=== PATIENT | female | born 1940 | race Caucasian/White ===

== ENCOUNTER 2017-03-25 07:55 | Outpatient (CLI) | payer MEDICARE ==
[2017-03-25 11:56] LABS: EOSINOPHILS # (AUTO) 0.1 10^3/uL (0.0-0.7); EOSINOPHILS % (AUTO) 2.8 %; HCT - HEMATOCRIT 39.6 % (37.0-47.0); HGB - HEMOGLOBIN 13.4 g/dL (12.0-16.0); LYMPHOCYTES # (AUTO) 1.7 10^3/uL (1.5-3.5); LYMPHOCYTES % (AUTO) 34.7 %; MEAN CORPUSCULAR HEMOGLOBIN 31.6 pg (27.0-31.0); MEAN CORPUSCULAR HGB CONC 33.9 g/dL (32.0-36.0); MEAN CORPUSCULAR VOLUME 93.1 fL (81.0-99.0); MONOCYTES # (AUTO) 0.4 10^3/uL (0.0-1.0); MONOCYTES % (AUTO) 8.1 %; NEUTROPHILS # (AUTO) 2.6 10^3/uL (1.5-6.6); NEUTROPHILS % (AUTO) 53.4 %; RED BLOOD COUNT 4.26 10^6/uL (4.20-5.40); RED CELL DISTRIBUTION WIDTH 13.4 % (12.0-15.0); UNCORRECTED WHITE BLOOD COUNT 4.9 x10^3/uL; WHITE BLOOD COUNT 4.9 x10^3/uL (4.8-10.8)
[2017-03-25 12:10] LABS: ALBUMIN/GLOBULIN RATIO 1.8 (1.0-2.2); BUN - BLOOD UREA NITROGEN 11 mg/dL (6-20); CARBON DIOXIDE - CO2 27 mmol/L (21-32); CHLORIDE 103 mmol/L (101-111); CHOL/HDL RATIO 2.4 (<4.4); CHOLESTEROL 225 mg/dL; CREATININE 0.6 mg/dL (0.4-1.0); GFR - MDRD 97 (>89); GLUCOSE 105 mg/dL (70-100); HDL CHOLESTEROL 95 mg/dL; POTASSIUM 4.1 mmol/L (3.5-5.0); SODIUM 137 mmol/L (135-145); TOTAL PROTEIN 6.4 g/dL (6.7-8.2); TRIGLYCERIDES 32 mg/dL
[2017-03-25 12:29] LABS: LDL CHOLESTEROL,DIRECT 108 mg/dL
== END 2017-03-25 07:56 | disposition home or self-care (01) ==
LOC: LAB.F 07:55
PROVIDERS: ATTEND Physician Assistant Medical
DX: E03.9 Hypothyroidism, unspecified (principal); I10 Essential (primary) hypertension; R35.0 Frequency of micturition; R39.11 Hesitancy of micturition; E55.9 Vitamin D deficiency, unspecified; G45.9 Transient cerebral ischemic attack, unspecified; Z79.899 Other long term (current) drug therapy
CPT/HCPCS: 36415; 80053; 80061; 82306; 84443; 85025

== ENCOUNTER 2017-03-25 16:20 | Outpatient (CLI) | payer MEDICARE ==
[2017-03-25 18:08] LABS: BILIRUBIN,URINE NEGATIVE (NEGATIVE)
[2017-03-25 18:34] LABS: WBC,URINE 0-3 /HPF (0-5)
== END 2017-03-25 16:21 | disposition home or self-care (01) ==
LOC: LAB.F 16:20
PROVIDERS: ATTEND Physician Assistant Medical
DX: R35.0 Frequency of micturition (principal); R39.11 Hesitancy of micturition
CPT/HCPCS: 81001

== ENCOUNTER 2017-07-18 20:21 | Emergency (ER) | payer MEDICARE ==
--- NOTE | 2017-07-18 20:52 | ED Physician Documentation ---
PD HPI FOCAL NEURO - Stated complaint Stated Complaint: WEAKNESS - Chief complaint Chief Complaint: Neuro - History obtained from History obtained from: Patient, Family - History of Present Illness Timing - onset: Other (Since the middle of last year she has had recurrent episodes where she has TIA-like symptoms on the right side of her body. It generally starts with perioral numbness on the right and affect sensation on the right side of the body, sometimes with weakness. There is never an associated headache. These happen frequently, several times a week but resolved without issue. She was admitted here last year and had negative cranial imaging including MRI, she has been on Plavix and a statin ever since. She did follow-up with a neurologist, Dr. Wang at the [facility]. Evidently she had an EEG which was negative but without symptoms at that time. 3 days ago had a more severe episode than normal, still with right-sided deficits but usually if she goes to sleep she wakes up without symptoms but she went to sleep that night and awoke with symptoms. She had 1 of her usual episodes tonight which is resolving without specific intervention.) Review of Systems Ten Systems: 10 systems reviewed and negative Constitutional: denies: Fever, Chills Cardiac: denies: Chest pain / pressure, Palpitations Respiratory: denies: Dyspnea, Cough GI: denies: Abdominal Pain Musculoskeletal: denies: Pain with weight bearing Neurologic: denies: Headache, Head injury, LOC PD PAST MEDICAL HISTORY - Past Medical History Past Medical History: Yes Cardiovascular: Hypertension, High cholesterol Respiratory: None Neuro: TIA, Headache/migraine Endocrine/Autoimmune: HyPOthyroidism GI: GERD : None HEENT: Other Psych: None Musculoskeletal: Osteoporosis Derm: None Other Past Medical History: 1 year of TIA "attacks" several a month - Past Surgical History Past 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 History: 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 HEENT: Cataracts, Detached retina repair, Tonsil/Adenoidectomy - Present Medications Home Medications: Ambulatory Orders Medication Instructions Recorded Confirmed Aspirin [Aspir-Low] 1 tab DAILY 03/26/16 07/18/17 Levothyroxine [Synthroid] 25 mcg DAILY 03/26/16 07/18/17 Losartan [Cozaar] 50 mg DAILY 03/26/16 07/18/17 Omeprazole [PriLOSEC] 1 tab PO DAILY 04/06/16 07/18/17 Calcium Citrate 1 tab PO DAILY 07/18/17 07/18/17 [place]-3/Dha/Epa/Fish Oil [Fish Oil 1 cap PO DAILY 07/18/17 07/18/17 1,000 mg Softgel] - Allergies Allergies/Adverse Reactions: Allergies Allergy/AdvReac Type Severity Reaction Status Date / Time ciprofloxacin [From Cipro] Allergy Unknown Verified 07/18/17 20:51 ciprofloxacin HCl * Allergy Unknown Verified 07/18/17 20:51 [From Cipro] cortisone Allergy Unknown Verified 07/18/17 20:51 hydrochlorothiazide Allergy Unknown Verified 07/18/17 20:51 lisinopril Allergy Unknown Verified 07/18/17 20:51 Penicillins Allergy Unknown Verified 07/18/17 20:51 ranitidine HCl * Allergy Unknown Verified 07/18/17 20:51 [From Zantac] - Social History Does the pt smoke?: No Smoking Status: Never smoker Does the pt drink ETOH?: Yes Does the pt have substance abuse?: No - Immunizations Immunizations are current?: Yes - POLST Patient has POLST: No PD ED PE NORMAL - Vitals Vital signs reviewed: Yes - General General: Alert and oriented X 3, No acute distress - HEENT HEENT: PERRL, EOMI - Neck Neck: Supple, no meningeal sign, No bony TTP - Cardiac Cardiac: RRR, No murmur - Respiratory Respiratory: No respiratory distress, Clear bilaterally - Abdomen Abdomen: Normal bowel sounds, Soft, Non tender - Extremities Extremities: No deformity, No tenderness to palpate, No calf tenderness / cord - Neuro Neuro: Alert and oriented X 3, prosthetics assistant 2-12 intact, No motor deficit, No sensory deficit, Normal speech - Psych Psych: Normal mood, Normal affect NIHSS - Time Time: 20:51 - Level of Consciousness Level of consciousness: (0) Alert, Keenly responsive LOC Questions: (0) Answers both Q's correct LOC Commands: (0) Performs both correctly - Gaze Best Gaze: (0) Normal - Visual Visual: (0) No loss - Facial Palsy Facial Palsy: (0) Normal, symmetrical movement - Motor Arms (both separate) Motor Arm (right): (0) No drift Motor Arm (left): (0) No drift - Motor Legs (both separate) Motor Leg (right): (0) No drift Motor Leg (left): (0) No drift - Limb Ataxia Limb Ataxia: (0) Absent - Sensory Sensory: (0) Normal - Best Language Best Language: (0) No aphasia - Dysarthria Dysarthria: (0) Normal - Extinction and Inattention (formally neg Extinction and inattention: (0) No abnormality - Total Score/Results Total Score/Result: 0 Results - Vitals Vitals: Vital Signs - 24 hr 07/18/17 07/18/17 07/18/17 20:30 20:55 21:19 Temperature 36.6 C Heart Rate 96 87 82 Respiratory 20 22 18 Rate Blood Pressure 207/110 H 209/97 H 190/94 H O2 Saturation 97 100 Oxygen O2 Source Room air PD MEDICAL DECISION MAKING - ED course ED course: She was evidently referred here by her neurologist for urgent cranial imaging with MRI, however we do not have MRI available 24 hours, 7 days a week. She has a negative stroke scale now. I spoke with her neurologist by phone who did recommend an MRI, however did not feel like it needed to be done tonight given that she is back in her normal pattern. Patient did not want to spend the night in observation for MRI in the morning so plans to return in the morning for this. Departure - Departure Disposition: 01 Home, Self Care Clinical Impression: Stroke-like symptoms Condition: Good Record reviewed to determine appropriate education?: Yes Comments: Continue your current medications including the Plavix and blood pressure medication. Return in the morning as discussed to be reevaluated, follow-up with Dr. Wang after that.
[2017-07-18 21:20] VITALS: BP 190/94
[2017-07-18 21:28] LABS: BASOPHILS # (AUTO) 0.1 10^3/uL (0.0-0.1); BASOPHILS % (AUTO) 0.9 %; EOSINOPHILS # (AUTO) 0.1 10^3/uL (0.0-0.7); EOSINOPHILS % (AUTO) 1.1 %; HCT - HEMATOCRIT 38.7 % (37.0-47.0); HGB - HEMOGLOBIN 13.5 g/dL (12.0-16.0); LYMPHOCYTES # (AUTO) 1.8 10^3/uL (1.5-3.5); LYMPHOCYTES % (AUTO) 27.1 %; MEAN CORPUSCULAR HEMOGLOBIN 32.7 pg (27.0-31.0); MEAN CORPUSCULAR HGB CONC 34.8 g/dL (32.0-36.0); MEAN CORPUSCULAR VOLUME 93.9 fL (81.0-99.0); MEAN PLATELET VOLUME 9.4 fL (7.9-10.8); MONOCYTES # (AUTO) 0.5 10^3/uL (0.0-1.0); MONOCYTES % (AUTO) 6.7 %; NEUTROPHILS # (AUTO) 4.3 10^3/uL (1.5-6.6); NEUTROPHILS % (AUTO) 64.2 %; RED BLOOD COUNT 4.12 10^6/uL (4.20-5.40); RED CELL DISTRIBUTION WIDTH 13.1 % (12.0-15.0); UNCORRECTED WHITE BLOOD COUNT 6.7 x10^3/uL; WHITE BLOOD COUNT 6.7 x10^3/uL (4.8-10.8)
[2017-07-18 21:41] LABS: ALBUMIN/GLOBULIN RATIO 1.8 (1.0-2.2); BILIRUBIN,TOTAL 0.5 mg/dL (0.2-1.0); CALCIUM 9.5 mg/dL (8.5-10.3); CREATININE 0.7 mg/dL (0.4-1.0); MAGNESIUM 2.1 mg/dL (1.7-2.8); TOTAL PROTEIN 6.7 g/dL (6.7-8.2)
== END 2017-07-18 21:31 | disposition home or self-care (01) ==
LOC: ED 20:21
DX: R53.1 Weakness (principal); R20.0 Anesthesia of skin; I10 Essential (primary) hypertension; E78.00 Pure hypercholesterolemia, unspecified; E03.9 Hypothyroidism, unspecified; Z86.73 Personal history of transient ischemic attack (TIA), and cerebral infarction without residual deficits; Z79.01 Long term (current) use of anticoagulants; Z79.82 Long term (current) use of aspirin
CPT/HCPCS: 36415; 80053; 83690; 83735; 85025; 99284

== ENCOUNTER 2017-07-19 07:54 | Emergency (ER) | payer MEDICARE ==
--- NOTE | 2017-07-19 08:36 | ED Physician Documentation ---
PD HPI FOCAL NEURO - Stated complaint Stated Complaint: FOLLOW UP - Chief complaint Chief Complaint: Neuro - History obtained from History obtained from: Patient - History of Present Illness Timing - onset: How many years ago (1+) Timing - duration: Minutes Timing - details: Abrupt onset, Now resolved Severity of deficit: Moderate Weakness: Arm, Hand, Leg, Foot, Right Numbness: Face, Arm, Hand, Leg, Foot, Right Associated symptoms: No: Headache, Nausea / vomiting, Seizure, Syncope, Fall, Head injury, Chest pain, Neck pain, Back pain, Fever Contributing factors: negative: Anticoagulated, Vascular dz, Atrial fibrillation , Prosthetic heart valve Baseline status: positive: A&OX3, ambulatory, indep Similar symptoms before: Diagnosis (tia) Recently seen: Emergency Dept (yesterday) - Additional information Additional information: 76-year-old female with recurrent TIA has episodes frequently and over the past week she has had daily episodes. She has been seeing by her neurologist and when she had recurrent episodes and persistent numbness her neurologist asked her to come to the hospital to get MRI done. She came to the emergency department last night this was not able to be done last night and she refused hospitalization for observation for MR in the morning. She is return to the emergency department today for MR. She states that she has some persistence of numbness in her hand only. Review of Systems Constitutional: denies: Fever, Chills, Myalgias, Fatigue, Sweats Eyes: denies: Decreased vision Ears: denies: Ear pain Nose: denies: Rhinorrhea / runny nose, Congestion Throat: denies: Sore throat Cardiac: denies: Chest pain / pressure, Palpitations Respiratory: denies: Dyspnea, Cough GI: denies: Abdominal Pain, Nausea, Vomiting : denies: Dysuria, Frequency Skin: denies: Rash Musculoskeletal: denies: Neck pain, Back pain, Extremity pain, Joint pain, Extremity swelling Neurologic: reports: Focal weakness, Numbness. 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 HEENT: Cataracts, Detached retina repair, Tonsil/Adenoidectomy - Present Medications Home Medications: Ambulatory Orders Medication Instructions Recorded Confirmed Aspirin [Aspir-Low] 1 tab DAILY 03/26/16 07/19/17 Levothyroxine [Synthroid] 25 mcg DAILY 03/26/16 07/19/17 Losartan [Cozaar] 50 mg DAILY 03/26/16 07/19/17 Omeprazole [PriLOSEC] 1 tab PO DAILY 04/06/16 07/19/17 Calcium Citrate 1 tab PO DAILY 07/18/17 07/19/17 [place]-3/Dha/Epa/Fish Oil [Fish Oil 1 cap PO DAILY 07/18/17 07/19/17 1,000 mg Softgel] Atorvastatin [Lipitor] 10 mg PO DAILY #20 tablet 07/19/17 - Allergies Allergies/Adverse Reactions: Allergies Allergy/AdvReac Type Severity Reaction Status Date / Time ciprofloxacin [From Cipro] Allergy Unknown Verified 07/19/17 08:07 ciprofloxacin HCl * Allergy Unknown Verified 07/19/17 08:07 [From Cipro] cortisone Allergy Unknown Verified 07/19/17 08:07 hydrochlorothiazide Allergy Unknown Verified 07/19/17 08:07 lisinopril Allergy Unknown Verified 07/19/17 08:07 Penicillins Allergy Unknown Verified 07/19/17 08:07 ranitidine HCl * Allergy Unknown Verified 07/19/17 08:07 [From Zantac] - Social History Does the pt smoke?: No Smoking Status: Never smoker Does the pt drink ETOH?: Yes Does the pt have substance abuse?: No - Immunizations Immunizations are current?: Yes - POLST Patient has POLST: No PD ED PE NORMAL - Vitals Vital signs reviewed: Yes (hypertensive) - HEENT HEENT: Atraumatic, PERRL, EOMI - Neck Neck: Supple, no meningeal sign, No bony TTP - Cardiac Cardiac: RRR, No murmur - Respiratory Respiratory: No respiratory distress, Clear bilaterally - Abdomen Abdomen: Soft, Non tender - Back Back: No CVA TTP, No spinal TTP - Derm Derm: Normal color, Warm and dry, No rash - Extremities Extremities: No deformity, No edema - Neuro Neuro: Alert and oriented X 3, soda clerk 2-12 intact, No motor deficit, No sensory deficit, Normal speech - Psych Psych: Normal mood, Normal affect NIHSS - Time Time: 08:20 - Level of Consciousness Level of consciousness: (0) Alert, Keenly responsive LOC Questions: (0) Answers both Q's correct LOC Commands: (0) Performs both correctly - Gaze Best Gaze: (0) Normal - Visual Visual: (0) No loss - Facial Palsy Facial Palsy: (0) Normal, symmetrical movement - Motor Arms (both separate) Motor Arm (right): (0) No drift Motor Arm (left): (0) No drift - Motor Legs (both separate) Motor Leg (right): (0) No drift Motor Leg (left): (0) No drift - Limb Ataxia Limb Ataxia: (0) Absent - Sensory Sensory: (0) Normal - Best Language Best Language: (0) No aphasia - Dysarthria Dysarthria: (0) Normal - Extinction and Inattention (formally neg Extinction and inattention: (0) No abnormality - Total Score/Results Total Score/Result: 0 Results - Vitals Vitals: Vital Signs - 24 hr 07/19/17 07/19/17 07/19/17 08:00 11:04 13:03 Temperature 36.9 C Heart Rate 86 64 78 Respiratory 16 15 15 Rate Blood Pressure 170/94 H 195/94 H 167/81 H O2 Saturation 100 100 99 Oxygen O2 Source Room air - Rads (name of study) MRI Radiology: Prelim report reviewed (Impression: 1. Small subacute infarct (1-7 days) of the left lateral thalamus with no evidence of hemorrhagic transformation. 2. No acute intracranial hemorrhage, mass, or hydrocephalus. 3. Additional moderate white matter changes that appear progressed from MR 2015.), Discussed with rads (acute/subacute infarct left thalmus), EMP read indepedently, See rad report CT neck angiogram Radiology: Prelim report reviewed (Impression: Atherosclerotic disease in the neck is mild. No acute abnormality or significant stenosis of the cervical vertebral or carotid arteries.), EMP read indepedently, See rad report CT head angiogram Radiology: Prelim report reviewed (Impression: 1. No CT evidence for acute intracranial hemorrhage or cortical infarct. 2. Abnormal hypodensities are present consistent with recent left lateral thalamic infarct and chronic cerebral white matter microangiopathy. 3. No intracranial enhancing mass. 4. No proximal intracranial large artery filling defect or occlusion. 5. Mild multifocal intracranial atherosclerotic disease is likely present.), EMP read indepedently, See rad report Procedures - IVC sono (time) 3805 Bedside IVC sono: IVC measures (cm) (1.20), Dehydration (mild) PD MEDICAL DECISION MAKING - ED course Complexity details: d/w supervisor home energy consultant (Dr. Nguyen neurology [facility]. Recomends vessle evaluation and follow up with him. He recommends a statin be started now. ) ED course: 76-year-old female with a history of a year long stuttering TIA has developed CVA 1 week ago. She has had some recovery of her symptoms and would refer to go home at this point. She has no debilitating deficit left from this stroke and has evidence of small vessel disease in the brain. She would prefer to go home and we did have a shared decision conversation about potential benefits from hospitalization. She will have follow-up with her neurologist. I did discuss with her starting the statin and she was reluctant to do this as she has prior history with friends that have had a problem with statins. I have asked her to talk to her neurologist about this as it may be beneficial to her to begin this medicine. She has been on plavix and stopped because of excessive bruising. She continues to take the aspirin. Departure - Departure Disposition: 01 Home, Self Care Clinical Impression: Dehydration Cerebrovascular accident (CVA) Qualifiers: CVA mechanism: unspecified Qualified Code(s): I63.9 - Cerebral infarction, unspecified Condition: Stable Instructions: ED Dehydration, ED Stroke Completed Follow-Up: Yancy Riggs PA-C [Primary Care Provider] - LORNA BENNETT [Physician No Access] - Prescriptions: Atorvastatin [Lipitor] 10 mg PO DAILY #20 tablet
--- NOTE | 2017-07-19 10:47 | MRI Preliminary Report ---
Exam: MRI BRAIN W/O IMPRESSION: 1. Small acute infarct (1-7 days) of the left lateral thalamus with no evidence of hemorrhagic transf ormation. 2. No acute intracranial hemorrhage, mass, or hydrocephalus. 3. Additional moderate white matter changes that appear progressed from MR 04/03/2016. The above findings were discussed with Dread Ward by Dr. Jamey Gupta at 10:45 hrs on 07/19/17. SITE ID: [id number]
--- NOTE | 2017-07-19 10:50 | MRI Report ---
EXAM: MRI BRAIN WITHOUT CONTRAST EXAM DATE: 07/19/2017 10:20 AM. CLINICAL HISTORY: 76-year-old with right sided TIA-like symptoms COMPARISON: MR brain 04/03/2016. TECHNIQUE: Multiplanar, multisequence T1-weighted and fluid-sensitive MR sequences of the brain were performed. Sequences optimized for routine evaluation. Other: None. IV Contrast: None. FINDINGS: Brain Volume: Mild to moderate cortical volume loss. Parenchyma/Dura: No acute parenchymal hemorrhage, mass, or midline shift. There is a small punctate f oci of restricted diffusion involving the lateral left thalamus measuring up to 5 mm (series 5, image 112) with associated T2/FLAIR signal hyperintensity. There is no associated T1 signal hyperintensity or susceptibility artifact. No additional areas of restricted diffusion seen to suggest additional a cute infarcts. There is moderate bilateral areas of T2/FLAIR signal hyperintensity seen that appear p rogressed from 04/03/2016. There is a punctate focus of susceptibility artifact seen within the right p arietal knapp radiata that appears new compared to prior study representing old hemorrhagic blood pr oducts either from microhemorrhage from hypertension or representing old hemorrhagic lacunar infarct. Pituitary: Partially empty sella appearance appear similar to prior study. Ventricles/Cisterns: No definite abnormal extra-axial fluid collection/mass seen. Ventricles and sulc i are prominent but appropriate for extent of volume loss. Cisterns are patent. Sinuses: Minimal mucosal thickening of the ethmoid air cells. Mastoid air cells and middle ear caviti es are clear. Orbits: There appears to be axial myopia, greater on the left. Changes of bilateral lens replacement. Bones: No focal pathologic appearing marrow signal changes. Other: The visualized major intracranial flow voids appear maintained. IMPRESSION: 1. Small acute infarct (1-7 days) of the left lateral thalamus with no evidence of hemorrhagic transf ormation. 2. No acute intracranial hemorrhage, mass, or hydrocephalus. 3. Additional moderate white matter changes that appear progressed from MR 04/03/2016. The above findings were discussed with Dread Ward by Dr. Jamey Gupta at 10:45 hrs on 07/19/17. Referring Provider Line: [phone] SITE ID: [id number]
[2017-07-19] MEDS ORDERED: IOPAMIDOL-300 100 ML VIAL ONE (11:30)
--- NOTE | 2017-07-19 13:43 | CT Preliminary Report ---
Exam: CT HEAD ANGIO IMPRESSION: 1. No CT evidence for acute intracranial hemorrhage or cortical infarct. 2. Abnormal hypodensities are present consistent with recent left lateral thalamic infarct and chroni c cerebral white matter microangiopathy. 3. No intracranial enhancing mass. 4. No proximal intracranial large artery filling defect or occlusion. 5. Mild multifocal intracranial atherosclerotic disease is likely present. [facility] SITE ID: [id number]
--- NOTE | 2017-07-19 13:47 | CT Preliminary Report ---
Exam: CT NECK ANGIO IMPRESSION: Atherosclerotic disease in the neck is mild. No acute abnormality or significant stenosis of the cervical vertebral or carotid arteries. [facility] SITE ID: [id number]
--- NOTE | 2017-07-19 14:12 | CT Report ---
EXAM: CT ANGIOGRAM HEAD EXAM DATE: 07/19/2017 12:50 PM. CLINICAL HISTORY: Right-sided weakness. MRI of the brain performed earlier today showed findings cons istent with small recent left thalamic region small vessel infarct. COMPARISON: No prior head CTA. TECHNIQUE: 1. Noncontrast Head: Using a multidetector scanner, axial images were acquired from the foramen magnu m to the skull vertex prior to contrast administration. 2. CTA Head: Using a multidetector scanner, high-resolution axial images were acquired from the skull base through vertex following rapid infusion of intravenous contrast. Multiplanar MIP reformats were reconstructed. 3. Post-contrast head CT: 5 mm contiguous axial sections were obtained from the foramen magnum to zehra karey was following CT angiogram. IV Contrast: 80 mL Isovue 300. In accordance with CT protocol optimization, one or more of the following dose reduction techniques w ere utilized for this exam: automated exposure control, adjustment of mA and/or KV based on patient s ize, or use of iterative reconstructive technique. FINDINGS: Brain CT without contrast: No acute hemorrhage. Mild atrophy. Amorphous white matter hypoattenuation is present consistent with aging and chronic small vessel ischemic disease, though nonspecific by CT. Subtle hypodensity in the region of the left lateral thalamus is present consistent with recent small vessel ischemic infarct w ithout associated hemorrhage. Intact calvarium. No acute sinus or mastoid disease. Brain CT with contrast: No abnormal enhancement. Head CT angiogram: No intracranial vertebrobasilar insufficiency. No stenosis associated with the small focus of calcifi cation of the proximal left intradural vertebral artery. No acute abnormality or flow-limiting stenos is of the proximal segments of the posterior cerebral arteries. Patent distal internal carotid arteries. Mild calcifications of the cavernous and paraclinoid segment s of the distal internal carotid arteries. No evidence for proximal occlusion, filling defect or significance stenosis of the anterior cerebral arteries or left middle cerebral artery. Minimal irregularity without significant stenosis of the right MCA M1 segment. Focal mild stenosis at the origin of the dominant right MCA M2 branch may be present. No evidence for proximal right middle cerebral artery occlusive filling defect. No three affiliated of Jimenez aneurysm. Contrast opacification of the major dural venous sinuses is present as expected. IMPRESSION: 1. No CT evidence for acute intracranial hemorrhage or cortical infarct. 2. Abnormal hypodensities are present consistent with recent left lateral thalamic infarct and chroni c cerebral white matter microangiopathy. 3. No intracranial enhancing mass. 4. No proximal intracranial large artery filling defect or occlusion. 5. Mild multifocal intracranial atherosclerotic disease is likely present [facility] Referring Provider Line: [phone] SITE ID: [id number]
--- NOTE | 2017-07-19 14:12 | CT Report ---
EXAM: CT ANGIOGRAM NECK EXAM DATE: 07/19/2017 01:08 PM. CLINICAL HISTORY: Right sided weakness. MRI of the brain recently showed a small infarct in the regio n of the lateral left thalamus. COMPARISON: None. TECHNIQUE: Routine axial helical imaging was performed from the skull base through the aortic arch. I V Contrast: 80 mL Isovue 300. Reconstructions: Routine multiplanar 3D MIP reconstructions. Evaluation of arterial stenosis is based on a NASCET method of measurement. In accordance with CT protocol optimization, one or more of the following dose reduction techniques w ere utilized for this exam: automated exposure control, adjustment of mA and/or KV based on patient s ize, or use of iterative reconstructive technique. FINDINGS: Mild atherosclerotic calcification at the top of the aortic arch. The origins of the left subclavian artery and left common carotid artery are patent. The innominate artery origin is not included on thi s study. Minimal calcifications of the proximal subclavian arteries without acute abnormality or flow limiting stenosis. No acute abnormality or focal flow limiting stenosis of the cervical vertebral arteries. Mild atherosclerotic disease with hard and soft plaque in the region of the right cervical carotid bi furcation without associated flow-limiting stenosis. Unremarkable appearance of the left cervical carotid artery. Moderately prominent chronic multilevel hypertrophic degenerative cervical spinal spondylosis. IMPRESSION: Atherosclerotic disease in the neck is mild. No acute abnormality or significant stenosis of the cervical vertebral or carotid arteries. [facility] Referring Provider Line: [phone] SITE ID: [id number]
[2017-07-19 14:58] VITALS: BP 174/120
[2017-07-19] MEDS ORDERED: IOPAMIDOL-300 100 ML VIAL IVP ONE ×2 (15:07)
== END 2017-07-19 14:59 | disposition home or self-care (01) ==
LOC: ED 07:54
DX: E86.0 Dehydration (principal); I63.9 Cerebral infarction, unspecified; I10 Essential (primary) hypertension; Z86.73 Personal history of transient ischemic attack (TIA), and cerebral infarction without residual deficits; E78.00 Pure hypercholesterolemia, unspecified; E03.9 Hypothyroidism, unspecified; K21.9 Gastro-esophageal reflux disease without esophagitis; M81.0 Age-related osteoporosis without current pathological fracture; Z79.82 Long term (current) use of aspirin
CPT/HCPCS: 70496; 70498; 70551; 99284; Q9967

== ENCOUNTER 2017-08-26 11:08 | Outpatient (CLI) | payer MEDICARE | END 2017-08-26 11:09 | disposition home or self-care (01) | LOC: CAM 11:08 | PROVIDERS: ATTEND Psychiatry & Neurology Neurology | DX: G89.0 Central pain syndrome (principal); R20.0 Anesthesia of skin; R20.2 Paresthesia of skin | CPT/HCPCS: 97810; 97811 ==

== ENCOUNTER 2017-09-02 16:20 | Outpatient (CLI) | payer MEDICARE | END 2017-09-02 16:21 | disposition home or self-care (01) | LOC: CAM 16:20 | PROVIDERS: ATTEND Psychiatry & Neurology Neurology | DX: G89.0 Central pain syndrome (principal); R20.0 Anesthesia of skin; R20.2 Paresthesia of skin | CPT/HCPCS: 97810; 97811 ==

== ENCOUNTER 2017-10-21 14:56 | Outpatient (CLI) | payer MEDICARE | END 2017-10-21 14:57 | disposition home or self-care (01) | LOC: CAM 14:56 | PROVIDERS: ATTEND Physician Assistant Medical | DX: R20.0 Anesthesia of skin (principal); R20.2 Paresthesia of skin | CPT/HCPCS: 97810; 97811 ==

== ENCOUNTER 2017-10-22 08:26 | Outpatient (CLI) | payer MEDICARE ==
[2017-10-22 10:38] LABS: CHOLESTEROL 168 mg/dL; HDL CHOLESTEROL 83 mg/dL
[2017-10-22 10:39] LABS: HB2 TOTAL 13.9 g/dL; HEMOGLOBIN A1C 0.51 g/dL; HEMOGLOBIN A1C % 5.5 % (4.6-6.2)
[2017-10-22 10:57] LABS: LDL CHOLESTEROL,DIRECT 72 mg/dL; LDLD/HDL RATIO 0.9 (<4.4)
== END 2017-10-22 08:27 | disposition home or self-care (01) ==
LOC: LAB.F 08:26
PROVIDERS: ATTEND Psychiatry & Neurology Neurology
DX: Z86.73 Personal history of transient ischemic attack (TIA), and cerebral infarction without residual deficits (principal); G89.0 Central pain syndrome; R20.0 Anesthesia of skin; R20.2 Paresthesia of skin
CPT/HCPCS: 36415; 80061; 83036; 83721

== ENCOUNTER 2017-10-28 15:52 | Outpatient (CLI) | payer MEDICARE | END 2017-10-28 15:53 | disposition home or self-care (01) | LOC: CAM 15:52 | PROVIDERS: ATTEND Physician Assistant Medical | DX: G89.0 Central pain syndrome (principal); R20.0 Anesthesia of skin; R20.2 Paresthesia of skin | CPT/HCPCS: 97810; 97811 ==

== ENCOUNTER 2017-11-04 15:08 | Outpatient (CLI) | payer MEDICARE | END 2017-11-04 15:09 | disposition home or self-care (01) | LOC: CAM 15:08 | PROVIDERS: ATTEND Physician Assistant Medical | DX: G89.0 Central pain syndrome (principal); R20.0 Anesthesia of skin; R20.2 Paresthesia of skin | CPT/HCPCS: 97813; 97814 ==

== ENCOUNTER 2017-11-11 15:14 | Outpatient (CLI) | payer MEDICARE | END 2017-11-11 15:15 | disposition home or self-care (01) | LOC: CAM 15:14 | PROVIDERS: ATTEND Physician Assistant Medical | DX: G89.0 Central pain syndrome (principal); R20.2 Paresthesia of skin; R20.0 Anesthesia of skin | CPT/HCPCS: 97813; 97814 ==

== ENCOUNTER 2017-11-25 16:12 | Outpatient (CLI) | payer MEDICARE | END 2017-11-25 16:13 | disposition home or self-care (01) | LOC: CAM 16:12 | PROVIDERS: ATTEND Physician Assistant Medical | DX: G89.0 Central pain syndrome (principal); R20.0 Anesthesia of skin; R20.2 Paresthesia of skin | CPT/HCPCS: 97810; 97811 ==

== ENCOUNTER 2017-12-16 15:03 | Outpatient (CLI) | payer MEDICARE | END 2017-12-16 15:04 | disposition home or self-care (01) | LOC: CAM 15:03 | PROVIDERS: ATTEND Physician Assistant Medical | DX: G89.0 Central pain syndrome (principal); R20.0 Anesthesia of skin; R20.2 Paresthesia of skin | CPT/HCPCS: 97810; 97811 ==

== ENCOUNTER 2017-12-30 16:01 | Outpatient (CLI) | payer MEDICARE | END 2017-12-30 16:02 | disposition home or self-care (01) | LOC: CAM 16:01 | PROVIDERS: ATTEND Physician Assistant Medical | DX: G89.0 Central pain syndrome (principal); R20.0 Anesthesia of skin; R20.2 Paresthesia of skin | CPT/HCPCS: 97810; 97811 ==

== ENCOUNTER 2018-01-27 15:51 | Outpatient (CLI) | payer MEDICARE | END 2018-01-27 15:52 | disposition home or self-care (01) | LOC: CAM 15:51 | PROVIDERS: ATTEND Physician Assistant Medical | DX: R20.0 Anesthesia of skin (principal); G89.0 Central pain syndrome; R20.3 Hyperesthesia | CPT/HCPCS: 97810; 97811 ==

== ENCOUNTER 2018-03-03 15:54 | Outpatient (CLI) | payer MEDICARE | END 2018-03-03 15:55 | disposition home or self-care (01) | LOC: CAM 15:54 | PROVIDERS: ATTEND Physician Assistant Medical | DX: G89.0 Central pain syndrome (principal); R20.0 Anesthesia of skin; R20.2 Paresthesia of skin | CPT/HCPCS: 97810; 97811 ==

== ENCOUNTER 2018-03-16 14:34 | Outpatient (CLI) | payer MEDICARE | END 2018-03-16 14:35 | disposition home or self-care (01) | LOC: LAB.F 14:34 | PROVIDERS: ATTEND Physician Assistant Medical | DX: E03.9 Hypothyroidism, unspecified (principal) | CPT/HCPCS: 36415; 84443 ==

== ENCOUNTER 2018-03-31 15:55 | Outpatient (CLI) | payer MEDICARE | END 2018-03-31 15:56 | disposition home or self-care (01) | LOC: CAM 15:55 | PROVIDERS: ATTEND Physician Assistant Medical | DX: G89.0 Central pain syndrome (principal); R20.2 Paresthesia of skin; R20.0 Anesthesia of skin | CPT/HCPCS: 97810; 97811 ==

== ENCOUNTER 2018-04-19 09:26 | Outpatient (CLI) | payer MEDICARE ==
--- NOTE | 2018-04-19 13:48 | Ultrasound Report ---
Procedure Date: 04/19/2018 Accession Number: [id number] / [id number] Procedure: US - Abdomen Complete CPT Code: FULL RESULT: EXAM: Abdomen Complete DATE: 04/19/2018 11:02 AM CLINICAL HISTORY: ABDOMINAL BLOATING COMPARISON: Abdominal ultrasound 05/10/2009. TECHNIQUE: Real-time scanning was performed with static images obtained. FINDINGS: Liver: The liver appears coarse and echogenic in keeping with parenchymal disease such as steatosis. Main portal vein flow: Hepatopetal. Gallbladder: Normal. No stones, wall thickening, or sonographic Yee's sign. Adenomyomatosis is noted. Biliary System: Common bile duct measures 4 mm. No intrahepatic or extrahepatic ductal dilatation. Pancreas: Visualized portion is unremarkable. Kidneys: Right: 12 cm longitudinally. Normal. No contour-deforming mass, stones, or hydronephrosis. Left: 11 cm longitudinally. Normal. No contour-deforming mass, stones, or hydronephrosis. Spleen: 9.4 cm. Normal in size and echotexture. Aorta and Inferior Vena Cava: Unremarkable. IMPRESSION: Liver steatosis. Gallbladder adenomyomatosis. [facility]
== END 2018-04-19 09:27 | disposition home or self-care (01) ==
LOC: DI 09:26
PROVIDERS: ATTEND Physician Assistant Medical
DX: K76.0 Fatty (change of) liver, not elsewhere classified (principal); K82.8 Other specified diseases of gallbladder
CPT/HCPCS: 76700

== ENCOUNTER 2019-02-10 09:40 | Outpatient (CLI) | payer MEDICARE ==
[2019-02-10 17:42] LABS: BASOPHILS % (AUTO) 1.1 %; EOSINOPHILS # (AUTO) 0.1 10^3/uL (0.0-0.7); EOSINOPHILS % (AUTO) 1.6 %; HGB - HEMOGLOBIN 13.1 g/dL (12.0-16.0); LYMPHOCYTES # (AUTO) 1.3 10^3/uL (1.5-3.5); LYMPHOCYTES % (AUTO) 27.6 %; MEAN CORPUSCULAR HEMOGLOBIN 32.1 pg (27.0-31.0); MEAN CORPUSCULAR HGB CONC 33.8 g/dL (32.0-36.0); MEAN CORPUSCULAR VOLUME 94.8 fL (81.0-99.0); MEAN PLATELET VOLUME 9.4 fL (7.9-10.8); MONOCYTES # (AUTO) 0.4 10^3/uL (0.0-1.0); MONOCYTES % (AUTO) 9.4 %; NEUTROPHILS # (AUTO) 2.7 10^3/uL (1.5-6.6); NEUTROPHILS % (AUTO) 60.3 %; PLT - PLATELET COUNT 231 10^3/uL (130-450); RED BLOOD COUNT 4.08 10^6/uL (4.20-5.40); RED CELL DISTRIBUTION WIDTH 13.7 % (12.0-15.0); WHITE BLOOD COUNT 4.5 x10^3/uL (4.8-10.8)
[2019-02-10 17:50] LABS: ALBUMIN 4.1 g/dL (3.2-5.5); ALBUMIN/GLOBULIN RATIO 1.9 (1.0-2.2); ALKALINE PHOSPHATASE 73 IU/L (42-121); ALT ALANINE AMINOTRANSFERASE 21 IU/L (10-60); AST ASPARTATE AMINOTRANSFERASE 21 IU/L (10-42); BILIRUBIN,TOTAL 0.4 mg/dL (0.2-1.0); BUN - BLOOD UREA NITROGEN 12 mg/dL (6-20); CARBON DIOXIDE - CO2 27 mmol/L (21-32); CHLORIDE 100 mmol/L (101-111); CHOLESTEROL 175 mg/dL; CREATININE 0.4 mg/dL (0.4-1.0); GFR - MDRD 154 (>89); GLUCOSE 115 mg/dL (70-100); HDL CHOLESTEROL 88 mg/dL; LDL CHOLESTEROL,CALCULATED 75 mg/dL; LDL/HDL RATIO 0.9 (<4.4); SODIUM 135 mmol/L (135-145); TOTAL PROTEIN 6.3 g/dL (6.7-8.2); VLDL CHOLESTEROL 12 mg/dL
[2019-02-10 18:36] LABS: HB2 TOTAL 13.6 g/dL; HEMOGLOBIN A1C 0.58 g/dL; HEMOGLOBIN A1C % 6.1 % (4.6-6.2)
== END 2019-02-10 09:41 | disposition home or self-care (01) ==
LOC: LAB.F 09:40
PROVIDERS: ATTEND Physician Assistant Medical
DX: I10 Essential (primary) hypertension (principal); E78.5 Hyperlipidemia, unspecified; R73.01 Impaired fasting glucose; E03.9 Hypothyroidism, unspecified
CPT/HCPCS: 36415; 80053; 80061; 83036; 83721; 84443; 85025

== ENCOUNTER 2019-03-09 16:46 | Outpatient (CLI) | payer MEDICARE ==
--- NOTE | 2019-03-10 09:57 | XRAY Report ---
Reason: LEG PAIN, RIGHT Procedure Date: 03/09/2019 Accession Number: [id number] / [id number] Procedure: XR - Tib/Fib RT CPT Code: FULL RESULT: EXAM: RIGHT TIBIA/FIBULA RADIOGRAPHY EXAM DATE: 03/09/2019 05:10 PM. CLINICAL HISTORY: LEG PAIN, RIGHT. COMPARISON: None. TECHNIQUE: 2 views. FINDINGS: Bones: Normal. No fracture or bone lesion. Joints: The visualized knee and ankle joints are normal. No effusions. Soft Tissues: Normal. No soft tissue swelling. IMPRESSION: Normal tibia/fibula radiography. [facility]
== END 2019-03-09 16:47 | disposition home or self-care (01) ==
LOC: DI 16:46
PROVIDERS: ATTEND Family Medicine
DX: M79.604 Pain in right leg (principal)

== ENCOUNTER 2019-11-10 14:59 | Outpatient (CLI) | payer MEDICARE ==
--- NOTE | 2019-11-15 11:19 | DEXA Report ---
Reason: POSTMENOPAUSAL STATE Procedure Date: 11/10/2019 Accession Number: [id number] / [id number] Procedure: DEX - Dexa Spine and/or Hip CPT Code: Final Report FULL RESULT: EXAM: Dexa Spine and/or Hip DATE: 11/10/2019 4:45 PM CLINICAL HISTORY: POSTMENOPAUSAL STATE TECHNIQUE: Dual energy x-ray absorptiometry (DXA) was performed on a SetuServ System. Regions measured are the AP Spine, femoral neck, and if needed forearm. COMPARISON: None. In accordance with the International Society for Clinical Densitometry (ISCD) guidelines, data from previous exams may be reanalyzed using current recommendations and techniques. This is done to allow a more accurate basis for comparison with the current study. FINDINGS: The data for the lumbar spine is as follows: BMD (g/cm/cm) T-SCORE Z-SCORE REGION L1 0.972 -1.3 0.1 L2 1.081 -1.0 0.4 L3 1.095 -0.9 0.5 L4 1.127 -0.6 0.8 TOTAL 1.073 -0.9 0.5 NOTE: All evaluable vertebrae are used for classification The data for the hip is as follows: BMD (g/cm/cm) T-SCORE Z-SCORE REGION Neck 0.667 -2.7 -0.8 TOTAL 0.773 -1.9 -0.2 NOTE: The femoral neck or total proximal femur, whichever is lowest, is used for classification. IMPRESSION: THE WHO CLASSIFICATION BASED ON THE INTERNATIONAL REFERENCE STANDARD IS OSTEOPOROSIS. THE FRACTURE RISK IS HIGH. RECOMMENDATION: Patients with diagnosis of osteoporosis or osteopenia should have regular bone mineral density assessment. For those eligible for Medicare, routine testing is allowed once every 2 years. Testing frequency can be increased for patients who have rapidly progressing disease or for those who are receiving medical therapy to restore bone mass. COMMENT: World Health Organization (WHO) definitions for osteoporosis and osteopenia: NORMAL BMD: T-score at -1.0 or higher, fracture risk is low OSTEOPENIA BMD: T-score between -1.0 and -2.5, fracture risk is increased. OSTEOPOROSIS BMD: T-score at -2.5 or lower, fracture risk is high. National Osteoporosis Foundation recommends: 1. Obtain adequate dietary calcium (at least 1200 mg per day) and vitamin D (400-800 international units per day). 2. Participate, as appropriate, in regular weightbearing and muscle-strengthening exercise. 3. Avoid tobacco use and reduce alcohol and caffeine intake. 4. For more detailed information see the website at www.NOF.org.
== END 2019-11-10 15:00 | disposition home or self-care (01) ==
LOC: DI 14:59
PROVIDERS: ATTEND Physician Assistant Medical
DX: M81.0 Age-related osteoporosis without current pathological fracture (principal)
CPT/HCPCS: 77080

== ENCOUNTER 2019-11-10 15:03 | Outpatient (CLI) | payer MEDICARE ==
--- NOTE | 2019-11-14 10:39 | Mammography Report ---
Reason: SCREENING MAMMO Procedure Date: 11/10/2019 Accession Number: [id number] / [id number] Procedure: EMMIE - Screening Mammo w/Lino CPT Code: Final Report FULL RESULT: EXAM: Screening Mammo w/Lino DATE: 11/10/2019 4:01 PM CLINICAL HISTORY: Screening encounter. History of excisional type benign left breast biopsy in 2006. TECHNIQUE: (B) - Bilateral CC and MLO views were obtained. Left laterally exaggerated CC view is obtained. COMPARISON: 04/05/2014 through 07/03/2010. PARENCHYMAL PATTERN: (D) - The breast(s) demonstrate(s) heterogeneously dense fibroglandular parenchyma. FINDINGS: Postsurgical left breast changes as well as large rodlike left breast calcifications are redemonstrated, typically benign. There are no suspicious masses, calcifications, or areas of distortion. IMPRESSION: Benign findings. BI-RADS category 2. RECOMMENDATION: (ANNUAL) - Recommend routine annual screening mammography. BI-RADS CATEGORY: (2) - Benign Findings. STANDARD QUALIFYING STATEMENTS: 1. This examination was not reviewed with the aid of Computer-Aided Detection (CAD). 2. A negative or benign imaging report should not preclude biopsy if clinically suspicious findings are present. 3. Dense breasts may obscure an underlying neoplasm. 4. This examination was reviewed with the aid of 3D breast imaging (tomosynthesis).
== END 2019-11-10 15:04 | disposition home or self-care (01) ==
LOC: DI 15:03
DX: Z12.31 Encounter for screening mammogram for malignant neoplasm of breast (principal)
CPT/HCPCS: 77063; 77067

== ENCOUNTER 2020-01-30 11:10 | Outpatient (CLI) | payer MEDICARE ==
[2020-01-30 11:28] LABS: BASOPHILS % (AUTO) 0.7 %; EOSINOPHILS # (AUTO) 0.1 10^3/uL (0.0-0.7); EOSINOPHILS % (AUTO) 1.9 %; HGB - HEMOGLOBIN 13.7 g/dL (12.0-16.0); LYMPHOCYTES # (AUTO) 1.1 10^3/uL (1.5-3.5); LYMPHOCYTES % (AUTO) 18.8 %; MEAN CORPUSCULAR HEMOGLOBIN 32.3 pg (27.0-31.0); MEAN PLATELET VOLUME 10.6 fL (7.9-10.8); MONOCYTES # (AUTO) 0.6 10^3/uL (0.0-1.0); MONOCYTES % (AUTO) 10.4 %; NEUTROPHILS # (AUTO) 3.9 10^3/uL (1.5-6.6); NEUTROPHILS % (AUTO) 67.8 %; PLT - PLATELET COUNT 242 10^3/uL (130-450); RED BLOOD COUNT 4.24 10^6/uL (4.20-5.40); RED CELL DISTRIBUTION WIDTH 12.8 % (12.0-15.0); WHITE BLOOD COUNT 5.7 x10^3/uL (4.8-10.8)
[2020-01-30 11:43] LABS: HB2 TOTAL 14.2 g/dL; HEMOGLOBIN A1C 0.59 g/dL
[2020-01-30 11:47] LABS: ALBUMIN 4.1 g/dL (3.2-5.5); ALBUMIN/GLOBULIN RATIO 1.7 (1.0-2.2); ALKALINE PHOSPHATASE 75 IU/L (42-121); ALT ALANINE AMINOTRANSFERASE 20 IU/L (10-60); AST ASPARTATE AMINOTRANSFERASE 20 IU/L (10-42); BILIRUBIN,TOTAL 0.7 mg/dL (0.2-1.0); BUN - BLOOD UREA NITROGEN 14 mg/dL (6-20); CALCIUM 8.8 mg/dL (8.5-10.3); CARBON DIOXIDE - CO2 30 mmol/L (21-32); CHLORIDE 101 mmol/L (101-111); CHOL/HDL RATIO 2.1 (<4.4); CHOLESTEROL 165 mg/dL; CREATININE 0.6 mg/dL (0.4-1.0); GLUCOSE 117 mg/dL (70-100); HDL CHOLESTEROL 77 mg/dL; LDL CHOLESTEROL,CALCULATED 80 mg/dL; SODIUM 136 mmol/L (135-145); TOTAL PROTEIN 6.5 g/dL (6.7-8.2); VLDL CHOLESTEROL 8 mg/dL
== END 2020-01-30 11:11 | disposition home or self-care (01) ==
LOC: LAB 11:10
PROVIDERS: ATTEND Physician Assistant Medical
DX: I10 Essential (primary) hypertension (principal); E78.5 Hyperlipidemia, unspecified; R73.01 Impaired fasting glucose; E03.9 Hypothyroidism, unspecified
CPT/HCPCS: 36415; 80053; 80061; 83036; 83721; 84443; 85025

== ENCOUNTER 2020-09-26 11:04 | Outpatient (CLI) | payer MEDICARE ==
[2020-09-26 15:30] LABS: BASOPHILS % (AUTO) 0.8 %; EOSINOPHILS # (AUTO) 0.1 10^3/uL (0.0-0.7); EOSINOPHILS % (AUTO) 1.4 %; HCT - HEMATOCRIT 40.7 % (37.0-47.0); HGB - HEMOGLOBIN 13.1 g/dL (12.0-16.0); LYMPHOCYTES # (AUTO) 1.3 10^3/uL (1.5-3.5); LYMPHOCYTES % (AUTO) 26.3 %; MEAN CORPUSCULAR HEMOGLOBIN 31.3 pg (27.0-31.0); MEAN CORPUSCULAR HGB CONC 32.2 g/dL (32.0-36.0); MEAN CORPUSCULAR VOLUME 97.1 fL (81.0-99.0); MEAN PLATELET VOLUME 11.3 fL (7.9-10.8); MONOCYTES # (AUTO) 0.4 10^3/uL (0.0-1.0); MONOCYTES % (AUTO) 8.6 %; NEUTROPHILS # (AUTO) 3.1 10^3/uL (1.5-6.6); NEUTROPHILS % (AUTO) 62.5 %; PLT - PLATELET COUNT 261 10^3/uL (130-450); RED BLOOD COUNT 4.19 10^6/uL (4.20-5.40); RED CELL DISTRIBUTION WIDTH 12.7 % (12.0-15.0)
[2020-09-26 15:44] LABS: ALBUMIN 4.2 g/dL (3.2-5.5); ALBUMIN/GLOBULIN RATIO 2.1 (1.0-2.2); ALKALINE PHOSPHATASE 72 IU/L (42-121); ALT ALANINE AMINOTRANSFERASE 20 IU/L (10-60); AST ASPARTATE AMINOTRANSFERASE 19 IU/L (10-42); BILIRUBIN,TOTAL 0.9 mg/dL (0.2-1.0); BUN - BLOOD UREA NITROGEN 15 mg/dL (6-20); CALCIUM 9.1 mg/dL (8.5-10.3); CARBON DIOXIDE - CO2 27 mmol/L (21-32); CHLORIDE 95 mmol/L (101-111); CHOL/HDL RATIO 2.2 (<4.4); CHOLESTEROL 188 mg/dL; CREATININE 0.6 mg/dL (0.4-1.0); GFR - MDRD 96 (>89); GLUCOSE 104 mg/dL (70-100); HDL CHOLESTEROL 84 mg/dL; LDL CHOLESTEROL,CALCULATED 96 mg/dL; LDL/HDL RATIO 1.1 (<4.4); SODIUM 134 mmol/L (135-145); TOTAL PROTEIN 6.2 g/dL (6.7-8.2); TRIGLYCERIDES 42 mg/dL; VLDL CHOLESTEROL 8 mg/dL
[2020-09-26 15:50] LABS: THYROID STIMULATING HORMONE 2.46 uIU/mL (0.34-5.60)
== END 2020-09-26 11:05 | disposition home or self-care (01) ==
LOC: LAB.S 11:04
PROVIDERS: ATTEND Registered Nurse
DX: R73.03 Prediabetes (principal); I10 Essential (primary) hypertension; E78.5 Hyperlipidemia, unspecified; E03.9 Hypothyroidism, unspecified
CPT/HCPCS: 36415; 80053; 80061; 83721; 84443; 85025

== ENCOUNTER 2020-12-29 12:03 | Outpatient (CLI) | payer MEDICARE ==
--- NOTE | 2020-12-30 10:09 | Mammography Report ---
BILATERAL DIGITAL SCREENING MAMMOGRAM 3D/2D: 12/29/2020 CLINICAL: Routine screening. Comparison is made to exams dated: 11/10/2019 mammogram, 04/05/2014 mammogram, and 03/15/2014 mammogram - [facility]. The tissue of both breasts is heterogeneously dense. This may lower the sensitivity of mammography. There is a cyst in the right breast. No significant masses, calcifications, or other findings are seen in either breast. IMPRESSION: BENIGN There is no mammographic evidence of malignancy. A 1 year screening mammogram is recommended. This exam was interpreted at Station ID: [id number]. NOTE: For mammograms, a report in lay terms will be sent to the patient. Approximately 15% of breast malignancies will not be visualized mammographically. In the management of a palpable breast mass, a negative mammogram must not discourage biopsy of a clinically suspicious lesion. Electronically Signed By: Sukhjinder Haynes M.D. aty/:12/30/2020 08:35:13 ACR BI-RADS Category 2: Benign Finding(s) 3342F PARENCHYMAL PATTERN: (D) - The breast(s) demonstrate(s) heterogeneously dense fibroglandular paraugustoy ma. BI-RADS CATEGORY: (2) - 2 RECOMMENDATION: (ANNUAL) - Recommend routine annual screening mammography. [id number] 1 year screening LATERALITY: (B)
== END 2020-12-29 12:04 | disposition home or self-care (01) ==
LOC: DI.S 12:03
DX: Z12.31 Encounter for screening mammogram for malignant neoplasm of breast (principal); N60.01 Solitary cyst of right breast

== ENCOUNTER 2021-05-06 10:43 | Day surgery (SDC) | payer MEDICARE ==
[2021-05-06] MEDS ORDERED: LACTATED RINGERS 1,000 ML IV ONE ×2 (10:48→13:29)
[2021-05-06] MEDS ORDERED: LIDO GARGLE 30 ML BOTTLE ONE (12:38)
[2021-05-06] MEDS ORDERED: fentaNYL 250 MCG/5 ML VIAL ONE (12:39)
[2021-05-06] MEDS ORDERED: MIDAZOLAM 2 MG/2 ML VIAL ONE ×3 (12:39→13:11)
[2021-05-06] MEDS ORDERED: LIDO GARGLE 30 ML BOTTLE PO ONE (12:50)
[2021-05-06] MEDS ORDERED: BENZOCAINE/TETRACAINE/BUTAMBEN 20 GM TOP ONE (12:50)
[2021-05-06 13:59] VITALS: BP 145/85
== END 2021-05-06 10:44 | disposition home or self-care (01) ==
LOC: SDS 10:43
PROVIDERS: ATTEND Surgery
PROC: 0DJD8ZZ Inspection of Lower Intestinal Tract, Via Natural or Artificial Opening Endoscopic (ICD-10-PCS; principal; 2021-05-06 12:15)
PROC: 0DB68ZX Excision of Stomach, Via Natural or Artificial Opening Endoscopic, Diagnostic (ICD-10-PCS; 2021-05-06 12:15)
DX: Z12.11 Encounter for screening for malignant neoplasm of colon (principal); K64.8 Other hemorrhoids; K64.4 Residual hemorrhoidal skin tags; K57.30 Diverticulosis of large intestine without perforation or abscess without bleeding; K21.9 Gastro-esophageal reflux disease without esophagitis; K29.50 Unspecified chronic gastritis without bleeding; K44.9 Diaphragmatic hernia without obstruction or gangrene
CPT/HCPCS: 43239; A9270; G0121; J3010; J7120

== ENCOUNTER 2022-06-05 09:59 | Outpatient (CLI) | payer MEDICARE ==
[2022-06-05 14:53] LABS: BASOPHILS % (AUTO) 0.8 %; EOSINOPHILS # (AUTO) 0.1 10^3/uL (0.0-0.7); EOSINOPHILS % (AUTO) 1.9 %; HCT - HEMATOCRIT 38.5 % (37.0-47.0); HGB - HEMOGLOBIN 12.9 g/dL (12.0-16.0); LYMPHOCYTES # (AUTO) 1.2 10^3/uL (1.5-3.5); LYMPHOCYTES % (AUTO) 26.2 %; MEAN CORPUSCULAR HEMOGLOBIN 31.7 pg (27.0-31.0); MEAN CORPUSCULAR HGB CONC 33.5 g/dL (32.0-36.0); MEAN CORPUSCULAR VOLUME 94.6 fL (81.0-99.0); MEAN PLATELET VOLUME 10.9 fL (7.9-10.8); MONOCYTES # (AUTO) 0.4 10^3/uL (0.0-1.0); MONOCYTES % (AUTO) 8.6 %; NEUTROPHILS # (AUTO) 2.9 10^3/uL (1.5-6.6); NEUTROPHILS % (AUTO) 61.7 %; PLT - PLATELET COUNT 260 10^3/uL (130-450); RED BLOOD COUNT 4.07 10^6/uL (4.20-5.40); WHITE BLOOD COUNT 4.7 x10^3/uL (4.8-10.8)
[2022-06-05 15:25] LABS: ALBUMIN 4.1 g/dL (3.2-5.5); ALKALINE PHOSPHATASE 66 IU/L (42-121); ALT ALANINE AMINOTRANSFERASE 19 IU/L (10-60); AST ASPARTATE AMINOTRANSFERASE 19 IU/L (10-42); BILIRUBIN,TOTAL 0.9 mg/dL (0.2-1.0); BUN - BLOOD UREA NITROGEN 15 mg/dL (6-20); CALCIUM 9.1 mg/dL (8.5-10.3); CARBON DIOXIDE - CO2 26 mmol/L (21-32); CHLORIDE 97 mmol/L (101-111); CHOLESTEROL 171 mg/dL; CREATININE 0.6 mg/dL (0.4-1.0); GFR - MDRD 96 (>89); GLUCOSE 106 mg/dL (70-100); HDL CHOLESTEROL 86 mg/dL; POTASSIUM 4.3 mmol/L (3.5-5.0); SODIUM 130 mmol/L (135-145); TOTAL PROTEIN 6.1 g/dL (6.7-8.2); TRIGLYCERIDES 26 mg/dL
[2022-06-05 15:36] LABS: THYROID STIMULATING HORMONE 2.35 uIU/mL (0.34-5.60)
== END 2022-06-05 10:00 | disposition home or self-care (01) ==
LOC: LAB.S 09:59
PROVIDERS: ATTEND Registered Nurse
DX: E78.5 Hyperlipidemia, unspecified (principal); R73.03 Prediabetes; E03.9 Hypothyroidism, unspecified; Z79.899 Other long term (current) drug therapy
CPT/HCPCS: 36415; 80053; 80061; 83721; 84443; 85025

== ENCOUNTER 2023-08-18 10:05 | Outpatient (CLI) | payer MEDICARE ==
[2023-08-18 14:34] LABS: BASOPHILS # (AUTO) 0.1 10^3/uL (0.0-0.1); EOSINOPHILS # (AUTO) 0.1 10^3/uL (0.0-0.7); EOSINOPHILS % (AUTO) 2.1 %; HCT - HEMATOCRIT 40.6 % (37.0-47.0); HGB - HEMOGLOBIN 12.8 g/dL (12.0-16.0); LYMPHOCYTES # (AUTO) 1.4 10^3/uL (1.5-3.5); LYMPHOCYTES % (AUTO) 21.9 %; MEAN CORPUSCULAR HEMOGLOBIN 30.5 pg (27.0-31.0); MEAN CORPUSCULAR HGB CONC 31.5 g/dL (32.0-36.0); MEAN CORPUSCULAR VOLUME 96.7 fL (81.0-99.0); MEAN PLATELET VOLUME 11.3 fL (7.9-10.8); MONOCYTES # (AUTO) 0.5 10^3/uL (0.0-1.0); MONOCYTES % (AUTO) 7.2 %; NEUTROPHILS # (AUTO) 4.2 10^3/uL (1.5-6.6); NEUTROPHILS % (AUTO) 67.3 %; PLT - PLATELET COUNT 292 10^3/uL (130-450); RED CELL DISTRIBUTION WIDTH 12.9 % (12.0-15.0); WHITE BLOOD COUNT 6.3 x10^3/uL (4.8-10.8)
[2023-08-18 15:13] LABS: ALBUMIN 4.3 g/dL (3.2-5.5); ALBUMIN/GLOBULIN RATIO 2.7 (1.0-2.2); BILIRUBIN,TOTAL 0.6 mg/dL (0.2-1.0); CALCIUM 9.4 mg/dL (8.5-10.3); CREATININE 0.6 mg/dL (0.6-1.3); POTASSIUM 4.3 mmol/L (3.5-4.5); TOTAL PROTEIN 5.9 g/dL (6.4-8.9)
[2023-08-18 15:25] LABS: THYROID STIMULATING HORMONE 2.32 uIU/mL (0.34-5.60)
== END 2023-08-18 10:06 | disposition home or self-care (01) ==
LOC: LAB.S 10:05
PROVIDERS: ATTEND Registered Nurse
DX: E03.9 Hypothyroidism, unspecified (principal); Z79.899 Other long term (current) drug therapy
CPT/HCPCS: 36415; 80053; 84443; 85025

== ENCOUNTER 2023-12-13 08:00 | Outpatient (CLI) | payer MEDICARE ==
--- NOTE | 2023-12-13 14:59 | XRAY Report ---
PROCEDURE: Chest 2V INDICATIONS: ACUTE UPPER RESPIRATORY INFECTION TECHNIQUE: 2 views of the chest were acquired. COMPARISON: None. FINDINGS: Surgical changes and devices: None. Lungs and pleura: There is blunting of the costophrenic angles bilaterally. Very slight appearance o f left basilar hazy opacity. Mediastinum: Mediastinal contours appear normal. Heart size is normal. Bones and chest wall: No suspicious bony lesions. Overlying soft tissues appear unremarkable. IMPRESSION: Costophrenic angle blunting bilaterally which may represent scarring. However, minimal hazy appearanc e is noted left base suspicious for dependent change versus atelectasis/developing pneumonia. Reviewed by: Rachna Miranda MD on 12/13/2023 2:58 PM PDT Approved by: Rachna Miranda MD on 12/13/2023 2:58 PM PDT Station ID: [id number]
== END 2023-12-13 23:59 | disposition home or self-care (01) ==
LOC: DI.S 08:00
PROVIDERS: ATTEND Nurse Practitioner
DX: J06.9 Acute upper respiratory infection, unspecified (principal)

== ENCOUNTER 2023-12-24 13:39 | Emergency (ER) | payer MEDICARE ==
[2023-12-24 13:49] VITALS: O2SAT 100
--- NOTE | 2023-12-24 14:17 | ED Physician Documentation ---
PD HPI URI - Stated complaint Stated Complaint: HURTS TO BREATH - Chief complaint Chief Complaint: Resp - History obtained from History obtained from: Patient - History of Present Illness Timing - onset: How many weeks ago (2-3 weeks of feeling dyspnea and less energy with activity. Goes to gym regularly but less the past 3 weeks due to fatigue. No chest pain, lightheaded. Had some mild cough initially and aches. But has not continued with cough. Seen in Walk In 10 days ago and Rx Doxycycline for ? pneunomia on CXR.) Timing details: Gradual onset, Still present (has not felt improvement with the Doxycycline. CXR had shown some fluid left costphrenia angle and left lower lung, per report I looked up.) Associated symptoms: Dyspnea (with activity and also with lying flat.), Other (fatigue on activity.). No: Fever, Sweats, Nasal congestion, Productive cough, Chest pain, Bilateral edema Similar symptoms before: Has not had sx before, Other (had some dyspnea symptoms about 6 years ago with normal ECHO and stress testing at the time, per pt.) Recently seen: Clinic PD PAST MEDICAL HISTORY - Past Medical History Past Medical History: Yes Cardiovascular: Hypertension, High cholesterol Respiratory: None Endocrine/Autoimmune: HyPOthyroidism GI: Ulcers, Colon polyps, Diverticulitis : None, Incontinence HEENT: Other Psych: None Musculoskeletal: Osteoporosis, Other Derm: None - Past Surgical History Past Surgical History: Yes 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, 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 HEENT: Cataracts, Detached retina repair, Tonsil/Adenoidectomy - Present Medications Home Medications: Ambulatory Orders Medication Instructions Recorded Confirmed Levothyroxine [Synthroid] 25 mcg ORAL DAILY 03/26/16 12/24/23 Losartan [Cozaar] 50 mg ORAL BID 03/26/16 12/24/23 Calcium Citrate 1 tab PO DAILY 07/18/17 12/24/23 [place]-3/Dha/Epa/Fish Oil [Fish Oil 1 cap PO DAILY 07/18/17 12/24/23 1,000 mg Softgel] Atorvastatin [Lipitor] 10 mg PO DAILY #20 tablet 07/19/17 12/24/23 Clopidogrel [Plavix] 75 mg PO DAILY #30 tablet 07/21/17 12/24/23 Cholecalciferol (Vitamin D3) 50 mcg PO DAILY 05/06/21 12/24/23 [Vitamin D3] Albuterol Sulf [Ventolin Hfa 2 puffs INH QID 14 Days #1 each 12/24/23 Inhaler] Furosemide [Lasix] 20 mg PO DAILY #10 tablet 12/24/23 dexAMETHasone [Decadron] 4 mg PO DAILY #5 tablet 12/24/23 - Allergies Allergies/Adverse Reactions: Allergies Allergy/AdvReac Type Severity Reaction Status Date / Time ciprofloxacin [From Cipro] Allergy Unknown Verified 12/24/23 13:41 ciprofloxacin HCl * Allergy Unknown Verified 12/24/23 13:41 [From Cipro] corn Allergy Unknown Verified 12/24/23 13:41 cortisone Allergy Unknown Verified 12/24/23 13:41 gluten Allergy Unknown Verified 12/24/23 13:41 hydrochlorothiazide Allergy Unknown Verified 12/24/23 13:41 lisinopril Allergy Unknown Verified 12/24/23 13:41 Penicillins Allergy Unknown Verified 12/24/23 13:41 ranitidine HCl * Allergy Unknown Verified 12/24/23 13:41 [From Zantac] - Social History Does the pt smoke?: No Smoking Status: Never smoker Does the pt drink ETOH?: Yes Does the pt have substance abuse?: No - Immunizations Immunizations are current?: Yes - POLST Patient has POLST: No PD ED PE NORMAL - Vitals Vital signs reviewed: Yes - General General: Alert and oriented X 3, No acute distress, Well developed/nourished - Neck Neck: Supple, no meningeal sign, No adenopathy - Cardiac Cardiac: RRR, No murmur - Respiratory Respiratory: No respiratory distress, Clear bilaterally (minimal fine crackles at bases. NO noted wheeze but does have some prolonged expiratory phase with breathing. ) - Abdomen Abdomen: Soft, Non tender - Derm Derm: Normal color, Warm and dry - Extremities Extremities: No edema, No calf tenderness / cord - Neuro Neuro: Alert and oriented X 3, No motor deficit, Normal speech Results - Vitals Vitals: Vital Signs - 24 hr 12/24/23 12/24/23 12/24/23 13:41 15:26 17:07 Temperature 36.8 C Heart Rate 72 79 82 Respiratory 18 16 18 Rate Blood Pressure 150/90 H 171/84 H O2 Saturation 100 100 Oxygen O2 Source Room air - EKG (time done) 15:16 EKG releavant findings:: EKG personally interpreted by author of this note. Relevant findings are: Rate: Rate (enter#) (68) Rhythm: NSR Intervals: Normal [place] Ischemia: Normal ST segments, T wave inversion (very prominent V2-6, I, aVL.). No: ST elevation c/w ischemia, ST depression Compare to prior EKG: Changed from prior EKG (but last one is 2015, with normal T waves at that time. ) - Labs Labs: Laboratory Tests 12/24/23 12/24/23 12/24/23 15:12 15:12 15:12 WBC 5.3 RBC 4.25 Hgb 13.2 Hct 40.6 MCV 95.5 MCH 31.1 H MCHC 32.5 RDW 12.9 Plt Count 275 MPV 10.4 Neut # (Auto) 3.1 Lymph # (Auto) 1.5 [place] # (Auto) 0.5 Eos # (Auto) 0.1 Baso # (Auto) 0.0 Absolute Nucleated RBC 0.00 Nucleated RBC % 0.0 Sodium 135 Potassium 4.2 Chloride 101 Carbon Dioxide 27 Anion Gap 7.0 BUN 15 Creatinine 0.6 Estimated GFR (MDRD) 95 Glucose 93 Calcium 9.7 Phosphorus 3.9 Magnesium 1.8 Total Bilirubin 0.6 AST 17 ALT 14 Alkaline Phosphatase 76 Troponin I High Sens 9.2 B-Natriuretic Peptide 670 H Total Protein 6.1 L Albumin 4.1 Globulin 2.0 L Albumin/Globulin Ratio 2.1 Lipase 26 TSH 2.28 - Rads (name of study) chest xray Relevant Findings:: Prelim report reviewed (no acute cardiopulmonary process), EMP independent interpretation of test (normal xray, and the prior left sulcus blunting and lower fluid is now resolved. ) PD Medical Decision Making - ED course Complexity details: reviewed results (ECG showing NSR with inverted T waves leads I/aVL/V3-6. Not inverted V1-2, not appearing Wellens criteria. P waves inverted V1-3. The inverted T waves anteriorly correlated or are congruent with down deflected R waves. CXR without enlarged heart. Normal Troponin but seome elevated BNP. ) Reviewed Lab Results: Troponin is negative so not acute ischemia. I would expect trop up if the T waves on ECG were related to ischemia. Had not had distinct viral symptoms at onset but aches fatigue, some cough. Consider viral syndrome and subsequent bronchial inflammation as her chest/breathing did feel improved with MDI here in ED. However I would also consider viral cardiomyopathy to correlate with fatigue, dyspnea, and some elevated BNP in conjunction with ECG changes, even consider pericarditis as fairly likely. We do not have ECHO available today in hospital, but pt does not appear in significant failure, so I do not feel the pt is missing care if not until next week or so. Similar I feel the pt would do best to have stress testing of some sort near future. The abnormal ECG would preclude regular stress, so would need stress cardiolyte or such. I would start treatment with albuterol MDI as may likely just be bronchial. Then decadron that would be helpful for bronchail as well as pericardial processes. Departure - Departure Disposition: 01 Home, Self Care Clinical Impression: Dyspnea, Abnormal ECG Condition: Stable Record reviewed to determine appropriate education?: Yes Follow-Up: Kaitlin Mar ARNP [Primary Care Provider] - Prescriptions: Furosemide [Lasix] 20 mg PO DAILY #10 tablet Albuterol Sulf [Ventolin Hfa Inhaler] 2 puffs INH QID 14 Days #1 each Comments: Your EKG does show some abnormality with inverted T waves. This can be a chronic finding though it does appear different from the last EKG we have from about over 10 years ago. Your blood test called troponin is negative so no signs of acute heart attack or ischemia or heart muscle inflammation. It is possible you could have some element of heart failure which would be inadequate pumping of the heart and under pressure that can lead to a backflow of fluid through the lungs. It does not appear significant or really that way on your current chest x-ray. A blood test called BNP is somewhat elevated that could correlate with some increased pressure within the heart pumping. At this point I am inclined also to think that there may be just some bronchial irritation from her recent viral type illness or so. I would have you try the albuterol inhaler 2 puffs 3-4 times daily over the next week or so and see how much improvement you get with that. Concurrent would be starting you on a mild diuretic/water pill called furosemide daily for the next week. Stay well- hydrated. Your blood sugar was within normal range. Electrolytes otherwise were normal as was kidney function. Your chest x-ray today does not show the small fluid collection around the lung that was present on your prior x-ray. Follow-up with your primary care. I would suggest to them with this note that further heart testing may be appropriate to include an ultrasound/echocardiogram to look at the heart function and a stress test to see if any signs of impaired blood flow to the heart. I know you had 1 prep 6 years ago or so but a lot can happen in the interval. At this point you appear safe. We can treat with the inhaler and diuretic as noted. Return if having worsening symptoms rather than better and follow-up with your primary care. I sent your prescriptions to the [facility]. I also printed out your prescriptions in case there is any delay or problems getting them sent from [facility]. Forms: PCP List Discharge Date/Time: 12/24/23 17:11
[2023-12-24 15:15] LABS: BASOPHILS % (AUTO) 0.8 %; EOSINOPHILS # (AUTO) 0.1 10^3/uL (0.0-0.7); EOSINOPHILS % (AUTO) 1.7 %; HCT - HEMATOCRIT 40.6 % (37.0-47.0); HGB - HEMOGLOBIN 13.2 g/dL (12.0-16.0); LYMPHOCYTES # (AUTO) 1.5 10^3/uL (1.5-3.5); LYMPHOCYTES % (AUTO) 28.2 %; MEAN CORPUSCULAR HEMOGLOBIN 31.1 pg (27.0-31.0); MEAN CORPUSCULAR HGB CONC 32.5 g/dL (32.0-36.0); MEAN CORPUSCULAR VOLUME 95.5 fL (81.0-99.0); MEAN PLATELET VOLUME 10.4 fL (7.9-10.8); MONOCYTES # (AUTO) 0.5 10^3/uL (0.0-1.0); MONOCYTES % (AUTO) 9.6 %; NEUTROPHILS # (AUTO) 3.1 10^3/uL (1.5-6.6); NEUTROPHILS % (AUTO) 59.3 %; PLT - PLATELET COUNT 275 10^3/uL (130-450); RED BLOOD COUNT 4.25 10^6/uL (4.20-5.40); RED CELL DISTRIBUTION WIDTH 12.9 % (12.0-15.0); WHITE BLOOD COUNT 5.3 x10^3/uL (4.8-10.8)
[2023-12-24] MEDS: ALBUTEROL 1 PUFF INH STA (15:16)
[2023-12-24 15:29] LABS: ALBUMIN 4.1 g/dL (3.2-5.5); ALBUMIN/GLOBULIN RATIO 2.1 (1.0-2.2); BILIRUBIN,TOTAL 0.6 mg/dL (0.2-1.0); CALCIUM 9.7 mg/dL (8.5-10.3); CREATININE 0.6 mg/dL (0.6-1.3); MAGNESIUM 1.8 mg/dL (1.7-2.3); PHOSPHORUS 3.9 mg/dL (2.5-5.0); POTASSIUM 4.2 mmol/L (3.5-4.5); TOTAL PROTEIN 6.1 g/dL (6.4-8.9)
--- NOTE | 2023-12-24 15:30 | XRAY Report ---
PROCEDURE: Chest 1V INDICATIONS: chest pain TECHNIQUE: One view of the chest was acquired. COMPARISON: 12/13/2023. FINDINGS: Surgical changes and devices: None. Lungs and pleura: No pleural effusions or pneumothorax. Lungs are clear. Mediastinum: Mediastinal contours appear normal. Heart size is normal. Bones and chest wall: No suspicious bony lesions. Overlying soft tissues appear unremarkable. IMPRESSION: No acute cardiopulmonary process. Reviewed by: Matias Morales MD on 12/24/2023 3:28 PM PDT Approved by: Matias Morales MD on 12/24/2023 3:28 PM PDT Station ID: [id number]
[2023-12-24 15:37] LABS: TROPONIN I HIGH SENSITIVITY 9.2 ng/L (2.3-14.8)
[2023-12-24 15:46] LABS: THYROID STIMULATING HORMONE 2.28 uIU/mL (0.34-5.60)
[2023-12-24] MEDS: FUROSEMIDE 20 MG TABLET PO STA (17:05)
[2023-12-24 17:17] VITALS: BP 171/84
== END 2023-12-24 17:11 | disposition home or self-care (01) ==
LOC: ED 13:39
DX: R06.00 Dyspnea, unspecified (principal); R94.31 Abnormal electrocardiogram [ECG] [EKG]; E78.00 Pure hypercholesterolemia, unspecified; E03.9 Hypothyroidism, unspecified
CPT/HCPCS: 36415; 71045; 80053; 83690; 83735; 83880; 84100; 84443; 84484; 85025; 93005; 94640; 99284; A9270

== ENCOUNTER 2024-02-09 14:57 | Emergency (ER) | payer MEDICARE ==
[2024-02-09 15:24] VITALS: O2SAT 100
--- NOTE | 2024-02-09 15:31 | ED Physician Documentation ---
History of Present Illness - Stated complaint Stated Complaint: GLF, FACE/LT HAND INJ - Chief complaint Chief Complaint: Trauma Hd/Nk - Additonal information Additional information: 83-year-old female presents emergency department after ground-level fall hitting her face on cement. No loss of consciousness no nausea vomiting no focal neurological deficits. Patient is on Plavix no blood thinners. She originally went to walk-in clinic who sent her here to the emergency department for further more advanced imaging. She appears to have a large abrasion to her nose she is complaining of left jaw pain, left wrist pain and left knee pain. 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 HEENT: Cataracts, Detached retina repair, Tonsil/Adenoidectomy - Present Medications Home Medications: Ambulatory Orders Medication Instructions Recorded Confirmed Levothyroxine [Synthroid] 25 mcg ORAL DAILY 03/26/16 12/24/23 Losartan [Cozaar] 50 mg ORAL BID 03/26/16 12/24/23 Calcium Citrate 1 tab PO DAILY 07/18/17 12/24/23 [place]-3/Dha/Epa/Fish Oil [Fish Oil 1 cap PO DAILY 07/18/17 12/24/23 1,000 mg Softgel] Atorvastatin [Lipitor] 10 mg PO DAILY #20 tablet 07/19/17 12/24/23 Clopidogrel [Plavix] 75 mg PO DAILY #30 tablet 07/21/17 12/24/23 Cholecalciferol (Vitamin D3) 50 mcg PO DAILY 05/06/21 12/24/23 [Vitamin D3] Albuterol Sulf [Ventolin Hfa 2 puffs INH QID 14 Days #1 each 12/24/23 Inhaler] Furosemide [Lasix] 20 mg PO DAILY #10 tablet 12/24/23 dexAMETHasone [Decadron] 4 mg PO DAILY #5 tablet 12/24/23 - Allergies Allergies/Adverse Reactions: Allergies Allergy/AdvReac Type Severity Reaction Status Date / Time ciprofloxacin [From Cipro] Allergy Unknown Verified 02/09/24 15:01 ciprofloxacin HCl * Allergy Unknown Verified 02/09/24 15:01 [From Cipro] corn Allergy Unknown Verified 02/09/24 15:01 cortisone Allergy Unknown Verified 02/09/24 15:01 gluten Allergy Unknown Verified 02/09/24 15:01 hydrochlorothiazide Allergy Unknown Verified 02/09/24 15:01 lisinopril Allergy Unknown Verified 02/09/24 15:01 Penicillins Allergy Unknown Verified 02/09/24 15:01 ranitidine HCl * Allergy Unknown Verified 02/09/24 15:01 [From Zantac] - Social History Does the pt smoke?: No Smoking Status: Never smoker Does the pt drink ETOH?: Yes Does the pt have substance abuse?: No - Immunizations Immunizations are current?: Yes - POLST Patient has POLST: No PD ED PE NORMAL - Vitals Vital signs reviewed: Yes - General General: Alert and oriented X 3, No acute distress, Well developed/nourished - HEENT HEENT: PERRL, Other (superficial nose abrasion, left jaw tenderness, able to open and close without crepitus) - Neck Neck: Other (cervical tenderness with chin to chest) - Cardiac Cardiac: RRR, No murmur, Strong equal pulses - Respiratory Respiratory: No respiratory distress, Clear bilaterally - Abdomen Abdomen: Normal bowel sounds, Soft, Non tender, Non distended - Derm Derm: Other (superfical abrasion to nose) - Extremities Extremities: No deformity, Other (Left wrist: able to flex and extend, mild tenerness to the ulnar aspect of wrist. Left knee: mild brusing to the meniscuse, able to flex and extend) - Neuro Neuro: Alert and oriented X 3, asset liability analyst 2-12 intact, No motor deficit, No sensory deficit, Normal speech Eye Opening: Spontaneous Motor: Obeys Commands Verbal: Oriented GCS Score: 15 - Psych Psych: Normal mood, Normal affect Results - Vitals Vitals: Vital Signs - 24 hr 02/09/24 02/09/24 02/09/24 15: 16:55 18:00 Temperature 36.8 C 36.8 C Heart Rate 82 80 Respiratory 16 16 16 Rate Blood Pressure 170/80 H 130/80 O2 Saturation 100 100 Oxygen O2 Source Room air - Rads (name of study) left knee xray Relevant Findings:: Final report received, EMP independent interpretation of test, Other (no acute fracture or other abnormalities) Cervical spine without Relevant Findings:: Final report received, EMP independent interpretation of test, Other (No acute cervical fractures or dislocation cervical spondylosis) Head CT without Relevant Findings:: Final report received, EMP independent interpretation of test, Other (No intracranial hemorrhages or other acute findings.) CT maxillofacial without Relevant Findings:: Final report received, EMP independent interpretation of test, Other (No mandibular bony abnormalities no fractures incidentally there is bilateral Ashley cells at the narrowing of the left nasal passage) PD Medical Decision Making - ED course ED course: 83-year-old female presents emergency department after experiencing ground-level fall. Patient was endorsing and some left wrist pain left knee pain, neck pain and left jaw pain. She did not lose consciousness and while in the emergency department she remains neurologically intact with no focal neurological deficits. CT head without con as well as CT cervical spine was complete for further evaluation and there were no acute abnormalities visualized. X-rays also completed patient's left knee and again no acute bony abnormalities were visualized. Left wrist x-rays were also complete without any bony abnormalities or findings. She had a superficial abrasion, bacitracin was applied over the left wrist as well as the nose superficial abrasion. Patient was taught how to manage her wounds at home given that she has had no abnormal findings on multiple different imaging she remains neurologically intact I believe that patient is safe for discharge. She is given return precautions she is taught how to manage her wounds at home and told to follow-up with her primary care provider soon as possible for check-in. Patient is told to anticipate being sore over the next several days to make sure that she is continuing to stay active and move to prevent from becoming overly sore and stiff. Patient understands discharge teaching she is able to provide teach back understands all discharge teaching and left emergency department ambulating without any difficulty. Return precautions given. Departure - Departure Disposition: 01 Home, Self Care Clinical Impression: Ground-level fall Nose abrasion Qualifiers: Encounter type: initial encounter Qualified Code(s): S00.31XA - Abrasion of nose, initial encounter Contusion of left knee Qualifiers: Encounter type: initial encounter Qualified Code(s): S80.02XA - Contusion of l eft knee, initial encounter Contusion of left wrist Qualifiers: Encounter type: initial encounter Qualified Code(s): S60.212A - Contusion of left wrist, initial encounter Instructions: ED Abrasion Comments: Thank you for trusting us with your care. We have completed a CT of your head and neck and do not see any acute abnromaltieis or findings. We have also completed Xray of your left wrist and left knee. You can alternate between 1000mg Tylenol every 8 hours and 600mg Ibuprofen every 6 hours for pain and discomfort. Please follow up with your PCP in 5-7 days. Please come back to ER if you start to develop any neurological symptoms, nausea with vomiting, One-sided your body weak, difficulty speaking, confusion, dizziness, or any other concerning neurological symptoms. Please also come back to the emergency department if you notice any signs symptoms of infection which include drainage that is yellow/green, fevers and chills, worsening inflammation. Keep your nose and your left hand covered with some sort of salve to help with wound healing as we discussed I recommend an ointment called Dr. Patel and is a salve not a lotion. Wishing you a speedy recovery. Forms: PCP List Discharge Date/Time: 02/09/24 18:00
[2024-02-09] MEDS: oxyCODONE 5 MG TABLET PO STA (16:12)
--- NOTE | 2024-02-09 16:23 | CT Report ---
PROCEDURE: Head WO INDICATIONS: GLF, head injury TECHNIQUE: Noncontrast 4.5 mm thick angled axial sections acquired from the foramen magnum to the vertex. For r adiation dose reduction, the following was used: automated exposure control, adjustment of mA and/or kV according to patient size. COMPARISON: CT angiogram of the head and neck dated 07/19/2017. FINDINGS: Image quality: Excellent. CSF spaces: Basal cisterns are patent. No extra-axial fluid collections. Ventricles are normal in size and shape. Brain: No midline shift. No intracranial masses or hemorrhage. Wang-white matter interface is norm al. Intracranial carotid calcifications. Age-related volume loss and small vessel ischemic change. Skull and face: Calvarium and visualized facial bones are intact, without suspicious lesions. Sinuses: Visualized sinuses and mastoids are clear. IMPRESSION: No acute intracranial pathology. Reviewed by: Ranjeet Davies MD on 02/09/2024 4:21 PM PDT Approved by: Ranjeet Davies MD on 02/09/2024 4:21 PM PDT Station ID: [id number]
--- NOTE | 2024-02-09 16:38 | CT Report ---
PROCEDURE: Cervical Spine WO INDICATIONS: GLF, neck pain TECHNIQUE: Noncontrast 3 mm thick sections acquired from the skull base to the T4 level. Sagittal and coronal r eformats were then constructed. For radiation dose reduction, the following was used: automated exp osure control, adjustment of mA and/or kV according to patient size. COMPARISON: None. FINDINGS: Image quality: Excellent. Bones: No fractures or dislocations. Visualized superior ribs are intact. Advanced cervical facet arthropathy on the left at C2-C3 and C3-C4 and on the right at C2-C3. There is severe right foraminal narrowing at C3-C4 and C5-C6. There is severe left foraminal narrowing at C4-C5. Soft tissues: Prevertebral soft tissues are normal in thickness. No paravertebral hematomas. No ap ical pneumothoraces. IMPRESSION: 1. No acute cervical fracture or dislocation. 2. Cervical spondylosis. Reviewed by: Ranjeet Davies MD on 02/09/2024 4:37 PM PDT Approved by: Ranjeet Davies MD on 02/09/2024 4:37 PM PDT Station ID: [id number]
--- NOTE | 2024-02-09 16:41 | CT Report ---
PROCEDURE: Maxillofacial WO INDICATIONS: left jaw pain TECHNIQUE: Noncontrast 1.5 mm thick axial images acquired from the mandible through the frontal sinuses, with co rocío and sagittal reformatting. For radiation dose reduction, the following was used: automated ex posure control, adjustment of mA and/or kV according to patient size. COMPARISON: None. FINDINGS: Image quality: Excellent. Bones and teeth: Orbital woods are intact. Sinus woods show no fracture or deformity. Nasal bones and septum are intact. Visualized portions of the mandible demonstrate no fractures or subluxation. Zygomatic arches are intact. Pterygoid plates are intact. Visualized portions of the skull base an d auditory canals are intact. Sinuses: Paranasal sinuses are aerated, without fluid levels, mucosal thickening, or mucoceles. Mas toid air cells are aerated. Incidental note made of the presence of bilateral Ashley cells. There is leftward nasal septal deviation with a prominent leftward nasal septal osteophytic bar, resulting in mild narrowing of the left nasal passage. Soft tissues: No edema, masses, or fluid collections. No enlarged lymph nodes. No soft tissue lace rations or debris. Vascular: Visualized vascular structures appear normal in the absence of contrast. Bony vascular fo ramina and canals are intact. IMPRESSION: 1. No displaced facial bone fracture or mandibular fracture. 2. Incidental note made of the presence of bilateral Ashley cells and narrowing of the left nasal pas monika. Reviewed by: Ranjeet Davies MD on 02/09/2024 4:40 PM PDT Approved by: Ranjeet Davies MD on 02/09/2024 4:40 PM PDT Station ID: [id number]
--- NOTE | 2024-02-09 16:59 | XRAY Report ---
PROCEDURE: Knee 3V LT INDICATIONS: left knee pain, GLF TECHNIQUE: 3 views of the knee(s) were acquired. COMPARISON: None. FINDINGS: Bones: No fractures or dislocations. No suspicious bony lesions. Moderate to severe medial mild t o moderate lateral patellofemoral compartment narrowing. Soft tissues: No knee joint effusion. No suspicious soft tissue calcifications or masses. IMPRESSION: Tricompartmental arthritic changes. No visualized acute fracture or dislocation. However, occult injury cannot be excluded. Recommend omaira rt interval imaging follow-up in 7-10 days as clinically indicated for additional evaluation. Reviewed by: Rachna Miranda MD on 02/09/2024 4:57 PM PDT Approved by: Rachna Miranda MD on 02/09/2024 4:57 PM PDT Station ID: [id number]
--- NOTE | 2024-02-09 16:59 | XRAY Report ---
PROCEDURE: Wrist 3+V LT INDICATIONS: GLF. left wrist pain TECHNIQUE: 3 views of the wrist were acquired. COMPARISON: None. FINDINGS: Bones: No fractures or dislocations. No suspicious bony lesions. First CMC arthritic change. Soft tissues: No suspicious soft tissue calcifications or masses. IMPRESSION: No visualized acute fracture or dislocation. However, occult injury cannot be excluded. Recommend omaira rt interval imaging follow-up in 7-10 days as clinically indicated for additional evaluation. Reviewed by: Rachna Miranda MD on 02/09/2024 4:58 PM PDT Approved by: Rachna Miranda MD on 02/09/2024 4:58 PM PDT Station ID: [id number]
[2024-02-09] MEDS ORDERED: BACITRACIN ZINC OINT 1 PACKET TOP STA (17:29)
[2024-02-09 18:03] VITALS: BP 130/80
== END 2024-02-09 18:00 | disposition home or self-care (01) ==
LOC: ED 14:57
DX: S80.02XA Contusion of left knee, initial encounter (principal); S60.212A Contusion of left wrist, initial encounter; S00.31XA Abrasion of nose, initial encounter; W18.30XA Fall on same level, unspecified, initial encounter; I10 Essential (primary) hypertension; E78.00 Pure hypercholesterolemia, unspecified; E03.9 Hypothyroidism, unspecified; Z79.899 Other long term (current) drug therapy; Z79.02 Long term (current) use of antithrombotics/antiplatelets
CPT/HCPCS: 36415; 70450; 70486; 72125; 73110; 73562; 99283; 99284; A9270

== ENCOUNTER 2024-03-01 13:29 | Outpatient (CLI) | payer MEDICARE | END 2024-03-01 13:30 | disposition home or self-care (01) | LOC: DI 13:29 | PROVIDERS: ATTEND Registered Nurse | DX: R06.00 Dyspnea, unspecified (principal); R94.31 Abnormal electrocardiogram [ECG] [EKG] | CPT/HCPCS: 93307 ==